=== PATIENT | male | born 1935 | race Caucasian/White ===

== ENCOUNTER → 2017-04-02 | Outpatient (CLI) | payer MEDICARE, OTHER ==
[~2017-04-02] MED LIST: CONTRAST GIVEN MC; IOHEXOL 300 MG/ML 100ML VIAL. IV
== END | disposition home or self-care (01) ==
LOC: CT 11:51
DX: N32.1 Vesicointestinal fistula (principal); K57.30 Diverticulosis of large intestine without perforation or abscess without bleeding; I70.0 Atherosclerosis of aorta; Z85.46 Personal history of malignant neoplasm of prostate
CPT/HCPCS: 72194; Q9967

== ENCOUNTER → 2017-04-07 | Outpatient (CLI) | payer MEDICARE, OTHER ==
[2017-04-07 12:29] LABS: PROSTATE SPECIFIC ANTIGEN 6.01 ng/mL (0.00-4.00)
== END | disposition home or self-care (01) ==
LOC: LAB 11:34
DX: Z12.5 Encounter for screening for malignant neoplasm of prostate (principal); C61 Malignant neoplasm of prostate
CPT/HCPCS: 36415; G0103